=== PATIENT | male | born 1990 | race Asian ===

== ENCOUNTER 2018-09-15 16:27 | Emergency (ER) | payer SELFPAY ==
[2018-09-15 16:41] VITALS: BP 119/81
--- NOTE | 2018-09-15 16:52 | UC ---
Back Pain HPI - HPI Summary HPI Summary: 28 yo male presents with left flank pain. He tells me that about 1 month ago he noticed some "tightness" to his left flank/left lower midaxillary area that was worse with left lateral flexion of his torso. About 2 weeks ago he noticed some swelling to the area and since that time the area has gotten more tight and he has felt a nodule in the area. Today he had sharp pain in his left flank that lasted 15-20minutes before spontaneously resolving. He feels well otherwise and denies injury, fever, chills, weight loss, night sweats, SOB, chest pain, abdominal pain, n/v, dysuria, or hematuria. No hx of kidney stones. He is active and plays basketball often. Pain does not radiate. No numbness or tingling. - History of Current Complaint Chief Complaint: UCBackPain Stated Complaint: BACK AND SIDE PAIN Time Seen by Provider: 09/15/18 16:52 Hx Obtained From: Patient Timing: Constant Severity Initially: Mild Severity Currently: Mild Pain Intensity: 2 Pain Scale Used: 0-10 Numeric - Allergies/Home Medications Allergies/Adverse Reactions: Allergies Allergy/AdvReac Type Severity Reaction Status Date / Time amoxicillin Allergy Intermediate unk Verified 09/15/18 16:52 PMH/Surg Hx/FS Hx/Imm Hx Respiratory History: Asthma - Surgical History Surgical History: None - Family History Known Family History: Positive: None - Social History Occupation: Employed Full-time Lives: With Family Alcohol Use: None Substance Use Type: None Smoking Status (MU): Never Smoked Tobacco Review of Systems All Other Systems Reviewed And Are Negative: Yes Constitutional: Positive: Negative Skin: Positive: Negative Respiratory: Positive: Negative Cardiovascular: Positive: Negative Gastrointestinal: Positive: Negative Neurovascular: Positive: Negative Musculoskeletal: Positive: Other: - Left flank pain Neurological: Positive: Negative Psychological: Positive: Negative Physical Exam - Summary Physical Exam Summary: GENERAL: NAD. WDWN. No pain distress. SKIN: No rashes, sores, lesions, or open wounds. At site of pain: No erythema, abscess, or induration. NECK: Supple. FROM. Nontender. No lymphadenopathy. CHEST: CTAB. No r/r/w. No accessory muscle use. Breathing comfortably and in no distress. CV: RRR. Without m/r/g. Pulses intact. Cap refill <2seconds. ABDOMEN: Soft. NTTP. No distention or guarding. No CVA tenderness. Bowel sounds present MSK: LEFT lower midaxillary at left abdominal oblique: Mild TTP with edema present and possible 1.5-2.0cm firm nodule. Pain with torso flexion to that side. LOW BACK: No pain with flexion and extension of spine. Negative SLR b/ l. Strength 5/5 B/L LEs including dorsiflexion and plantar flexion. FROM B/L LEs. NEURO: Alert. Sensations intact B/L LEs L3-S1. Reflexes intact PSYCH: Age appropriate behavior. Triage Information Reviewed: Yes Vital Signs: Initial Vital Signs Temp 98.8 F 09/15/18 16:35 Pulse 61 09/15/18 16:35 Resp 16 09/15/18 16:35 BP 119/81 09/15/18 16:35 Pulse Ox 100 09/15/18 16:35 Laboratory Tests 09/15/18 17:13 POC Urine Color Yellow POC Urine Clarity Clear POC Urine pH 7.0 POC Ur Specif Galva 1.015 POC Urine Protein Negative POC Ur Glucose (UA) Negative POC Urine Ketones Negative POC Urine Blood Negative POC Urine Nitrite Negative POC Urine Bilirubin Negative POC Urine Urobilinogen 0.2 POC U Leukocyte Esteras Negative Vital Signs Reviewed: Yes Back Pain Course/Dx - Course Course Of Treatment: UA negative CT abdomen and pelvis: IMPRESSION: Normal CT examination. Pt was notified of results. CBC and CMP drawn to further evaluate. Suspect possible lipoma or soft tissue/muscular nodule or swelling. Advised pt to f/u with PCP for further eval and possible ultrasound of the area. - Differential Dx/Diagnosis Provider Diagnosis: Left flank pain Discharge - Sign-Out/Discharge Documenting (check all that apply): Patient Departure All imaging exams completed and their final reports reviewed: Yes - Discharge Plan Condition: Stable Disposition: HOME Prescriptions: Albuterol HFA INHALER* [Ventolin HFA Inhaler*] 1 puff INH Q6H PRN #1 mdi PRN Reason: Sob/Wheezing Patient Education Materials: Flank Pain (ED) Referrals: Keny Ramirez MD [Primary Care Provider] - 1 Week Additional Instructions: If you develop a fever, shortness of breath, chest pain, new or worsening symptoms - please call your PCP or go to the ED immediately. Your CT today did not show any abnormality to correlate with your area of pain and swelling. We have drawn for labwork today to further evaluate your symptoms. I recommend that you follow up with your primary doctor within 1 week for a recheck of your symptoms and for lab results. Try taking ibuprofen 400-600mg every 6-8 hours for discomfort to see if this improves your symptoms. - Billing Disposition and Condition Condition: STABLE Disposition: Home
--- NOTE | 2018-09-15 18:31 | UC ---
- Progress Note Progress Note: CT scan unremarkable. Patient will follow up with his PCP for further evaluation. Course/Dx - Diagnoses Provider Diagnoses: Left flank pain Discharge - Sign-Out/Discharge Documenting (check all that apply): Patient Departure All imaging exams completed and their final reports reviewed: Yes - Discharge Plan Condition: Stable Disposition: HOME Prescriptions: Albuterol HFA INHALER* [Ventolin HFA Inhaler*] 1 puff INH Q6H PRN #1 mdi PRN Reason: Sob/Wheezing Patient Education Materials: Flank Pain (ED) Referrals: Keny Ramirez MD [Primary Care Provider] - 1 Week Additional Instructions: If you develop a fever, shortness of breath, chest pain, new or worsening symptoms - please call your PCP or go to the ED immediately. Your CT today did not show any abnormality to correlate with your area of pain and swelling. We have drawn for labwork today to further evaluate your symptoms. I recommend that you follow up with your primary doctor within 1 week for a recheck of your symptoms and for lab results. Try taking ibuprofen 400-600mg every 6-8 hours for discomfort to see if this improves your symptoms. - Billing Disposition and Condition Condition: STABLE Disposition: Home
[2018-09-16 11:06] LABS: ABS Eosinophils 0.2 10^3/ul (0-0.6); ABS Lymphocytes 1.4 10^3/ul (1.0-4.8); ABS Monocytes 0.3 10^3/ul (0-0.8); ABS Neutrophils 2.9 10^3/ul (1.5-7.7); Eosinophil % 5.2 %; Hematocrit 53 % (42-52); Hemoglobin 17.9 g/dL (14.0-18.0); Lymphocyte % 28.5 %; Mean Corpuscular HGB Conc 34 g/dL (31-36); Mean Corpuscular Hemoglobin 29 pg (27-31); Mean Corpuscular Volume 86 fL (80-94); Mean Platelet Volume 8.4 fL (7.4-10.4); Nucleated Red Blood Cells % 0.2; Platelet Count 199 10^3/uL (150-450); Red Blood Count 6.14 10^6 /uL (4.18-5.48); Red Cell Distribution Width 13 % (10-15); White Blood Count 4.8 10^3/uL (3.5-10.8)
[2018-09-16 11:11] LABS: Albumin 5.2 g/dL (3.2-5.2); Calcium 10.4 mg/dL (8.6-10.3); Total Bilirubin 1.3 mg/dL (0.2-1.0)
[2018-09-16 11:17] LABS: Albumin/Globulin Ratio 1.9 (1-3); BUN/Creatinine Ratio 11.3 (8-20); EGFR African American 140.3 (>60); Globulin 2.7 g/dL (2-4); Total Protein 7.9 g/dL (6.4-8.9)
== END 2018-09-15 18:37 | disposition home or self-care (01) ==
LOC: UCEAST 16:27
DX: R10.9 Unspecified abdominal pain (principal); J45.909 Unspecified asthma, uncomplicated
CPT/HCPCS: 36415; 74176; 80053; 81003; 85025; 99211; G0463

== ENCOUNTER 2019-04-05 18:53 | Emergency (ER) | payer BC ==
[2019-04-05 19:42] VITALS: BP 104/68
--- NOTE | 2019-04-05 20:23 | UC ---
Skin Complaint HPI - HPI Summary HPI Summary: 2 DAYS OF DIFFUSE, BUMPY, ITCHY RASH. STATES HE WASHED AND WAXED HIS CAR PRIOR TO THE ONSET OF HIS SYMPTOMS BUT OTHERWISE HAS HAD NO NEW EXPOSURES OF WHICH HE IS AWARE. NO NEW PRESCRIPTION OR OTC MEDS. NO FEVER, BODY ACHES, NAUSEA. - History of Current Complaint Chief Complaint: UCRash Time Seen by Provider: 04/05/19 19:31 Stated Complaint: BODY RASH Hx Obtained From: Patient, Family/Software Release Manager - Onset/Duration: Gradual Onset, Lasting Days, Still Present Timing: Constant Onset Severity: Moderate Current Severity: Moderate Pain Intensity: 8 Pain Scale Used: 0-10 Numeric Location: Diffuse Character: Pruritus, Redness Aggravating Factor(s): Touch Alleviating Factor(s): Nothing Associated Signs & Symptoms: Positive: Rash. Negative: Nausea, Difficulty Breathing, Fever, Cough, Wheezing, Throat Tightening - Allergy/Home Medications Allergies/Adverse Reactions: Allergies Allergy/AdvReac Type Severity Reaction Status Date / Time amoxicillin Allergy Intermediate unk Verified 04/05/19 19:42 PMH/Surg Hx/FS Hx/Imm Hx Respiratory History: Asthma - Surgical History Surgical History: None - Family History Known Family History: Positive: None, Other - no skeletal disorders - Social History Alcohol Use: None Substance Use Type: None Smoking Status (MU): Never Smoked Tobacco Review of Systems All Other Systems Reviewed And Are Negative: Yes Constitutional: Positive: Negative Skin: Positive: Rash Respiratory: Positive: Negative Cardiovascular: Positive: Negative Gastrointestinal: Positive: Negative Physical Exam Triage Information Reviewed: Yes Appearance: Well-Appearing, No Pain Distress, Well-Nourished Vital Signs: Initial Vital Signs Temp 97.8 F 04/05/19 19:38 Pulse 50 04/05/19 19:38 Resp 12 04/05/19 19:38 BP 104/68 04/05/19 19:38 Pulse Ox 100 04/05/19 19:38 Vital Signs Reviewed: Yes Eyes: Positive: Conjunctiva Clear ENT: Positive: Hearing grossly normal Neck: Positive: Supple Respiratory Exam: Normal Cardiovascular Exam: Normal Abdomen Description: Positive: Soft Musculoskeletal: Positive: No Edema Neurological: Positive: Alert Psychological: Positive: Normal Response To Family, Age Appropriate Behavior Skin: Positive: Rashes - ERYTHEMATOUS PAPULAR RASH ON CHEST, ABDOMEN, GROIN, LOW BACK, AXILLAE, ANTERIOR NECK, CHIN AND LOWER LEGS. Course/Dx - Course Course Of Treatment: PRESENTATION CONSISTENT WITH AN ALLERGIC DERMATITIS. UNCLEAR TO WHAT HE IS REACTING. WILL TREAT WITH PREDNISONE, OTC ANTIHISTAMINES AND A TOPICAL STEROID. ENCOURAGED TO KEEP COOL, CLEAN AND DRY. CONSIDER EVAL BY PHERESIS SPECIALIST IF SYMPTOMS ARE RECURRENT. GO TO DERMATOLOGY IF SYMPTOMS ARE PERSISTENT. - Diagnoses Provider Diagnosis: Allergic dermatitis Discharge ED - Sign-Out/Discharge Documenting (check all that apply): Patient Departure All imaging exams completed and their final reports reviewed: No Studies - Discharge Plan Condition: Stable Disposition: HOME Prescriptions: predniSONE 50 mg TAB [Deltasone 50 mg TAB] 50 mg PO DAILY #5 tab Triamcinolone 0.1% CREAM(NF) [Kenalog Cream 0.1%(NF)] 1 applic TOPICAL BID PRN # 80 gm PRN Reason: Itching Patient Education Materials: Dermatitis (ED) Referrals: Keny Ramirez MD [Primary Care Provider] - If Needed Additional Instructions: USE DAILY HYPOALLERGENIC MOISTURIZING LOTION TAKE PREDNISONE DAILY PRESCRIBED AVOID HEAT AND HOT WATER TAKE OTC ANTIHISTAMINE DAILY (CLARITIN (LORATADINE), ZYRTEC (CETIRIZINE) OR BRETT (FEXOFENADINE) IN THE MORNING, 25-50MG BENADRYL AT NIGHT) DO NOT SCRATCH KEEP COOL, CLEAN AND DRY USE TOPICAL STEROID SPARINGLY 2 TIMES DAILY ON ITCHY SPOTS. KEEP AWAY FROM MUCOUS MEMBRANES. GO TO THE ED WITHOUT FAIL IF YOU DEVELOP ANY RESPIRATORY INVOLVEMENT, TONGUE/ LIP SWELLING, FEVER, NAUSEA/VOMITING OR ANY OTHER CONCERNING SYMPTOMS. IF YOU HAVE RECURRENT SYMPTOMS CONSIDER EVAL BY AN PHERESIS SPECIALIST. [facility] Address: [address], [place] [address] [facility] Replaced by [facility] [address] [place] [id number] SEE PCP OR DERMATOLOGY IF NOT IMPROVING DERMATOLOGY IN [place] DR. BRAULIO LAUREN (DOES NOT SEE PTS ON MONDAYS OR TUESDAYS. DOES NOT TAKE MEDICAID) [facility], [facility] [address] [place] [address]; [address] [place] [address] Dr. Siria Padron Address: [address] [place] [address] DR. YEVGENIY CONKLIN, DR. CELSO MARCIAL [facility] [address], [place] [address] [facility] [place] [facility] [address] [place] [address] [address] [place] [address] Sheryl Martinez [facility]ERMATOLOGY [place] DR. YEVGENIY CONKLIN [phone] - Billing Disposition and Condition Condition: STABLE Disposition: Home
== END 2019-04-05 20:42 | disposition home or self-care (01) ==
LOC: UCEAST 18:53
DX: L23.9 Allergic contact dermatitis, unspecified cause (principal); J45.909 Unspecified asthma, uncomplicated; Z88.0 Allergy status to penicillin
CPT/HCPCS: 99212; G0463; J7512